=== PATIENT | female | born 2005 | race Two or more races ===

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

== ENCOUNTER 2025-04-01 10:36 | Outpatient (CLI) | payer OTHER | END 2025-04-01 10:40 | disposition home or self-care (01) | LOC: RAD 10:36 | DX: N20.0 Calculus of kidney (principal) ==